=== PATIENT | male | born 1955 | race Caucasian/White ===

== ENCOUNTER → 2023-09-07 | Outpatient (CLI) | payer MEDICARE, SELFPAY ==
--- NOTE | 2023-09-07 14:00 | MRI_ITS ---
STUDY: MRI LUMBAR SPINE WITHOUT CONTRAST REASON FOR EXAM: Male, 68 years old. Lower back pain and radiculopathy. TECHNIQUE: Standardized fat and water weighted pulse sequences were obtained in the sagittal and axial planes. COMPARISON: None FINDINGS: T11-T12 and T12-L1: (Sagittal only). Normal endplates. Normal disc height, hydration and morphology. No ventral extradural defects. Normal bilateral intervertebral neural foramina. Normal lumbar lordosis. There is no substantial scoliosis. Normal conus medullaris that terminates at the lower T12 vertebral body level. L1-2: Normal endplates. Normal disc height, hydration and morphology. Normal bilateral facet joints. Normal central canal and bilateral lateral recesses. Normal bilateral intervertebral neural foramina. L2-3: Modic type I degenerative vertebral marrow edema underneath the vertebral endplates. There is slight loss of the upper L3 vertebral body height suggestive of L3 superior endplate compression fracture. There is also a large T1 and T2 hypointensity in the anterior lower two thirds of the L2 vertebral body possibly representing large bone island. Mild disc space height narrowing. Mild degenerative retrolisthesis of L2 on L3. Mild bilateral degenerative facet arthropathy. Prominent dorsal epidural lipomatosis. Mild central canal stenosis with an AP canal diameter of 9 mm. Normal bilateral lateral recesses. Mild stenosis of the bilateral intervertebral neural foramina. L3-4: Mixed Modic type II and type III degenerative changes of the vertebral marrow underneath the vertebral endplates. Pronounced left-sided disc space height narrowing. Mild degenerative retrolisthesis of L3 on L4. 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 This accounts for the posterior bulging of the thecal sac behind the left L3 hemilaminectomy site. Mild right degenerative facet arthropathy. Mild central canal stenosis at the lower L3 vertebral body level but capacious central canal at the disc space level and caudally. Normal bilateral lateral recesses. Moderate asymmetric stenosis of the bilateral intervertebral neural foramina. L4-5: Normal endplates. Normal disc height, hydration and morphology. Mild bilateral degenerative facet arthropathy. Prominent dorsal epidural lipomatosis. Moderately pronounced central canal stenosis with an AP canal diameter of 6 mm secondary to developmentally short pedicles and prominent dorsal epidural lipomatosis. Normal bilateral lateral recesses. Moderate stenosis of the right intervertebral neural foramen and mild stenosis of the left intervertebral neural foramen. L5-S1: Normal endplates. Normal disc height, hydration and morphology. Normal bilateral facet joints. Normal central canal and bilateral lateral recesses. Normal bilateral intervertebral neural foramina. Normal visualized sacral ala. Normal visualized paraspinous soft tissue structures. MRI/Spine Lumbar (Routine) IMPRESSION: 1. Moderately pronounced central canal stenosis at L4-L5 disc space level with an AP canal diameter of 6 mm secondary to developmentally short pedicles and prominent dorsal epidural lipomatosis. Additionally, moderate stenosis of the right intervertebral neural foramen and mild stenosis of the left intervertebral neural foramen. 2. L2-L3 intervertebral osteochondritis (Modic type I) but there is suspicious L3 superior endplates of compression fracture deformity. Recent fracture of the L3 superior endplate is difficult to separate from the intervertebral osteochondritis. This is feasible for kyphoplasty if patient has debilitating back pain referrable to this site. Additionally, large T1 on T2 hyperintensity in the anterior lower two thirds of the L2 vertebral body may represent bone island. CT will help confirm/clarify. 3. Mild central canal stenosis at the lower L3 vertebral body level but no central canal stenosis at the L3-L4 disc space level and caudally due to left L3 hemilaminectomy. There is however moderate asymmetric stenosis of the bilateral intervertebral neural foramina. 4. No MRI evidence of lumbar extruded disc fragment or disc protrusion. Electronically Signed: Sridhar Harris MD at 9:25 EST ,
== END | disposition home or self-care (01) ==
PROVIDERS: PCP Family Medicine
DX: M54.30 Sciatica, unspecified side (principal); M79.606 Pain in leg, unspecified
CPT/HCPCS: 72148